=== PATIENT | male | born 1975 | race African-American/Black ===

== ENCOUNTER 2019-12-07 13:59 | Emergency (ER) | payer OTHER ==
[2019-12-07] MEDS ORDERED: ACETAMINOPHEN 325 MG TABLET (FP) PO ONE (15:14)
[2019-12-07 15:48] VITALS: BP 135/99; PULSE 78; TEMP 100.3; BMI 34.4
[2019-12-07 16:51] LABS: EPITHELIAL CELLS FEW /hpf
--- NOTE | 2019-12-07 17:03 | PDOC ---
Documentation entered by Dianne Orourke SCRIBE, acting as scribe for Brice Pulido MD. Brice Pulido MD: This documentation has been prepared by the Beatriz morelos Maria, SCRIBE, under my direction and personally reviewed by me in its entirety. I confirm that the documentation accurately reflects all work, treatment, procedures, and medical decision making performed by me. History of Present Illness - General Chief Complaint: Urinary Problem Stated Complaint: urinary symptoms,fever Time Seen by Provider: 12/07/19 14:01 History Source: Patient Exam Limitations: No Limitations - History of Present Illness Initial Comments: 12/07/19 15:19 The patient is a 44 year old male with no significant past medical history who presents to the emergency department as per [facility]s request for evaluation of 3 days of fever, urinary frequency and lower back pain due to prior injury. As per patient, he endorses his urinary symptoms at night and denies receiving any medication from urgent care for his fevers, he currently presents to the ER with a fever of 100.3. Patient denies any recent chest pain or shortness of breath. He denies any re cent dysuria, frequency,or hematuria. Denies having any recent unprotected sex. Past History - Past Medical History Allergies/Adverse Reactions: Allergies Allergy/AdvReac Type Severity Reaction Status Date / Time No Known Allergies Allergy Verified 12/07/19 15:56 Home Medications: Ambulatory Orders Ciprofloxacin [Cipro (Restricted To Id)] 250 mg PO BID #14 tablet 12/07/19 Review of Systems - Review of Systems Able to Perform ROS?: Yes Constitutional: Yes: Fever. No: Symptoms Reported, See HPI, Chills, Diaphoresis, Loss of Appetite, Malaise, Night Sweats, Weakness, Weight Stable, Unintentional Wgt. Loss, Unexplained wgt Loss, Other HEENTM: No: Symptoms Reported, See HPI, Eye Pain, Blurred Vision, Tearing, Recent change in vision, Double Vision, Cataracts, Ear Pain, Ocular Prothesis, Ear Discharge, Nose Pain, Nose Congestion, Tinnitus, Nose Bleeding, Hearing Loss, Throat Pain, Throat Swelling, Mouth Pain, Dental Problems, Difficulty Swallowing, Mouth Swelling, Other Respiratory: No: Symptoms reported, See HPI, Cough, Orthopnea, Shortness of Breath, SOB with Exertion, SOB at Rest, Stridor, Wheezing, Productive cough, Hemoptysis, Other Cardiac (ROS): No: Symptoms Reported, See HPI, Chest Pain, Edema, Irregular Heart Rate, Lightheadedness, Palpitations, Syncope, Chest Tightness, Other ABD/GI: No: Symptoms Reported, See HPI, Abdominal Distended, Abd. Pain w/ defecation, Blood Streaked Bowels, Constipated, Diarrhea, Difficulty Swallowing, Nausea, Poor Appetite, Poor Fluid Intake, Rectal Bleeding, Vomiting, Indigestion, Abdominal cramping, Tarry Stools, Other : Yes: Frequency. No: Symptoms Reported, See HPI, Burning, Dysuria, Discharge, Flank Pain, Hematuria, Incontinence, Pain, Urgency, Testicular Mass, Testicular Swelling, Lesions, Testicular Pain, Other Musculoskeletal: Yes: Back Pain. No: Symptoms Reported, See HPI, Gout, Joint Pain, Joint Swelling, Muscle Pain, Muscle Weakness, Neck Pain, Joint Stiffness, Other Neurological: No: Symptoms reported, See HPI, Headache, Numbness, Paresthesia, Pre-Existing Deficit, Seizure, Tingling, Tremors, Weakness, Unsteady Gait, Ataxia, Dizziness, Other Psychiatric: No: Anxiety, Depression, Frequent Crying, Stressors, Sleep Pattern Change, Emotional Problems, Mood Swings, Change in Appetite, Other Endocrine: No: Symptoms Reported, See HPI, Excessive Sweating, Flushing, Intolerance to Cold, Intolerance to Heat, Increased Hunger, Increased Thirst, Increased Urine, Unexplained Weight Gain, Unexplained Weight Loss, Change in Weight, Other Hematologic/Lymphatic: No: Symptoms Reported, See HPI, Anemia, Blood Clots, Easy Bleeding, Easy Bruising, Bleeding Diathesis, Lymph Node Abnormalities, Swollen Glands, Other *Physical Exam - Physical Exam 12/07/19 15:19 GENERAL: Well developed, well nourished. Awake and alert. No acute distress. HEENT: Normocephalic, atraumatic. PERRLA, EOMI. No conjunctival pallor. Sclera are non- icteric. Moist mucous membranes. Oropharynx is clear. NECK: Supple. Full ROM. No JVD. Carotid pulses 2+ and symmetric, without bruits. No thyromegaly. No lymphadenopathy. CARDIOVASCULAR: Regular rate and rhythm. No murmurs, rubs, or gallops. Distal pulses are 2+ and symmetric. PULMONARY: No evidence of respiratory distress. Lungs clear to auscultation bilaterally. No wheezing, rales or rhonchi. ABDOMINAL: Soft. Non-tender. Non-distended. No rebound or guarding. No organomegaly. Normoactive bowel sounds. MUSCULOSKELETAL Normal range of motion at all joints. No bony deformities or tenderness. No CVA tenderness. EXTREMITIES: No cyanosis. No clubbing. No edema. No calf tenderness. SKIN: Warm and dry. Normal capillary refill. No rashes. No jaundice. NEUROLOGICAL: Alert, awake, appropriate. Cranial nerves 2-12 intact. No deficits to light touch and temperature in face, upper extremities and lower extremities. No motor deficits in the in face, upper extremities and lower extremities. Normoreflexic in the upper and lower extremities. Normal speech. Toes are down-going bilaterally. Gait is normal without ataxia. PSYCHIATRIC: Cooperative. Good eye contact. Appropriate mood and affect. ED Treatment Course - ADDITIONAL ORDERS Additional order review: 12/07/19 16:52 Patient will be treated for UTI with Cipro If worsen patient will return for imaging study Follow up with Urologist Pt is in agreement with plan - RADIOLOGY Radiology Studies Ordered: 12/07/19 17:02 Pt with UTI, possible prostatitis Will treat with Cipro, if worsen return to ER Pt is in agreement with plan Discharge - Discharge Information Problems reviewed: Yes Clinical Impression/Diagnosis: UTI (urinary tract infection) Qualifiers: Urinary tract infection type: site unspecified Hematuria presence: with hematuria Qualified Code(s): N39.0 - Urinary tract infection, site not specified; R31.9 - Hematuria, unspecified Condition: Good Disposition: HOME - Admission No - Follow up/Referral Referrals: Austin Christopher MD [Staff Physician] - - Patient Discharge Instructions Patient Printed Discharge Instructions: DI for Urinary Tract Infection (UTI) Additional Instructions: Cipro 250 mg 2x/day for 7 days Fluids, rest, Motrin Follow up with Urologist If worsen return to ER - Post Discharge Activity
== END 2019-12-07 17:35 | disposition home or self-care (01) ==
LOC: FER 13:59
DX: N39.0 Urinary tract infection, site not specified (principal)
CPT/HCPCS: 81003; 81015; 87086; 99283-25

== ENCOUNTER 2024-08-28 04:27 | Day surgery (SDC) | payer OTHER ==
[2024-08-26 13:05] VITALS: BMI 32.3
[2024-08-28 11:51] VITALS: RESP 16; TEMP 97.9
[2024-08-28 12:30] VITALS: BP 123/85; PULSE 67
== END 2024-08-28 12:30 | disposition home or self-care (01) ==
LOC: JASU-ENDO 04:27
PROVIDERS: ATTEND Internal Medicine Gastroenterology
PROC: 0DBP8ZX Excision of Rectum, Via Natural or Artificial Opening Endoscopic, Diagnostic (ICD-10-PCS; 2024-08-28)
PROC: 0DBN8ZX Excision of Sigmoid Colon, Via Natural or Artificial Opening Endoscopic, Diagnostic (ICD-10-PCS; 2024-08-28)
PROC: 0DBP8ZX Excision of Rectum, Via Natural or Artificial Opening Endoscopic, Diagnostic (ICD-10-PCS; principal; 2024-08-28 10:30)
DX: D12.7 Benign neoplasm of rectosigmoid junction (principal); D12.8 Benign neoplasm of rectum; K62.6 Ulcer of anus and rectum; K64.8 Other hemorrhoids
CPT/HCPCS: 87045; 87046; 87077; 87081; 88305-TC

== ENCOUNTER 2025-05-25 06:27 | Day surgery (SDC) | payer OTHER ==
[2025-05-20 14:38] VITALS: BMI 31.8
[2025-05-25] MEDS ORDERED: MIDAZOLAM HCL 2 MG/2 ML SINGLE DOSE VIAL ONE ×2 (16:15→16:22)
[2025-05-25 16:59] VITALS: RESP 16; TEMP 97.1
[2025-05-25 18:01] VITALS: BP 123/80; PULSE 56
== END 2025-05-25 18:35 | disposition home or self-care (01) ==
LOC: JASU-SURG 06:27
PROVIDERS: ATTEND Urology
PROC: 0TF4XZZ Fragmentation in Left Kidney Pelvis, External Approach (ICD-10-PCS; principal; 2025-05-25 15:30)
DX: N20.0 Calculus of kidney (principal)